=== PATIENT | female | born 1970 | race Caucasian/White ===

== ENCOUNTER 2018-10-22 10:16 | Emergency (ER) | payer MEDICAID, OTHER ==
--- NOTE | 2018-10-22 10:31 | EDPHY ---
HPI/HX/ROS/PE/MDM Narrative: CHIEF COMPLAINT: R leg swelling HPI: This patient is a 48 year old female with history of diabetes, hypertension, hyperlipidemia. She complains of bilateral ankle swelling ongoing for the past week, which is unusual for her. This morning, she woke with right leg swelling and presented to urgent care for evaluation. She was then referred here to the ED to rule out DVT or other acute processes. She denies ever having calf swelling in the past. Denies any recent prolonged travel. No chest pain or shortness of breath. She denies any known heart problems. No fever or other recent illness or trauma. REVIEW OF SYSTEMS: A comprehensive 10 system review of systems is otherwise negative aside from elements mentioned in the history of present illness and medical decision making. PMH: Diabetes, hypertension, hyperlipidemia. SOCIAL HISTORY: Single, lives in [place], self-employed. PHYSICAL EXAM: General:Patient is alert, in no acute distress. ENT:Eyes are normal to inspection. ENT inspection normal. Neck: Normal inspection. Full range of motion. Respiratory:No respiratory distress. Breath sounds normal bilaterally. Cardiovascular: Regular rate and rhythm. Strong peripheral pulses. Normal cap refill. Abdomen:The abdomen is nontender to palpation. There are no peritoneal signs. There are normal bowel sounds. Back: Normal to inspection. No tenderness to palpation. Skin: Normal color. No rash. Warm and dry. Extremities: Bilateral ankle swelling. Right calf swelling. Full range of motion. Neuro: Oriented x3. Normal motor function. Normal sensory function. ED Course: 48 y/o female presents with right calf swelling and bilateral ankle swelling. She otherwise feels well. Plan for chest x-ray, labs including CBC, chemistries , BNP, d-dimer, LFTs. Plan for US RLE to rule out DVT. CXR is negative for acute processes. Laboratory studies are completely unremarkable. 12:[address] Martin, radiologist. US is negative for DVT. Reassessed patient. Discussed imaging results. Plan to discharge home in good condition. She will follow up with her PCP for further evaluation and discussion of her medication regimen. Follow up and return precautions discussed. She is comfortable with this plan. MDM: This patient presents with bilateral lower extremity edema with some asymmetric discomfort on the right. We performed an extensive workup including LFTs, BNP, chest x-ray, troponin, basic metabolic profile, all of which are normal. The etiology of her edema is unclear, but I see no sign of emergent causes such as renal failure, congestive heart failure, electrolyte disturbance the a. Ultrasound is negative for DVT. I think the patient is safe for further outpatient workup and management. I have a consult case management to assist her with establishing a primary care provider. - Data Points Imaging Results: Imaging Impressions Chest X-Ray 10/22/18 10:35 Impression: Normal chest. Extremity Venous Study 10/22/18 11:25 Impression: No evidence of deep vein thrombosis, with limited visualization of the posterior tibial veins. Findings discussed with Jair Casper MD 10/22/2018 at 12:18. Imaging: I viewed and interpreted images myself Laboratory Results: Laboratory Results 10/22/18 10:35 10/22/18 10:35 10/22/18 10/22/18 10/22/18 10:35 10:35 10:35 WBC 6.60 10^3/uL 10^3/uL (3.80-9.50) RBC 4.69 10^6/uL 10^6/uL (4.18-5.33) Hgb 14.8 g/dL g/dL (12.6-16.3) Hct 44.9 % % (38.0-47.0) MCV 95.7 fL fL (81.5-99.8) MCH 31.6 pg pg (27.9-34.1) MCHC 33.0 g/dL g/dL (32.4-36.7) RDW 13.2 % % (11.5-15.2) Plt Count 171 10^3/uL 10^3/uL (150-400) MPV 11.0 fL fL (8.7-11.7) Neut % (Auto) 68.0 % % (39.3-74.2) Lymph % (Auto) 21.5 % % (15.0-45.0) Howard % (Auto) 6.7 % % (4.5-13.0) Eos % (Auto) 3.2 % % (0.6-7.6) Baso % (Auto) 0.3 % % (0.3-1.7) Nucleat RBC Rel Count 0.0 % % (0.0-0.2) Absolute Neuts (auto) 4.49 10^3/uL 10^3/uL (1.70-6.50) Absolute Lymphs (auto) 1.42 10^3/uL 10^3/uL (1.00-3.00) Absolute Monos (auto) 0.44 10^3/uL 10^3/uL (0.30-0.80) Absolute Eos (auto) 0.21 10^3/uL 10^3/uL (0.03-0.40) Absolute Basos (auto) 0.02 10^3/uL 10^3/uL (0.02-0.10) Absolute Nucleated RBC 0.00 10^3/uL 10^3/uL (0-0.01) Immature Gran % 0.3 % % (0.0-1.1) Immature Gran # 0.02 10^3/uL 10^3/uL (0.00-0.10) D-Dimer 0.36 ug/mLFEU ug/mLFEU (0.00-0.50) Sodium 139 mEq/L mEq/L (135-145) Potassium 4.3 mEq/L mEq/L (3.5-5.2) Chloride 103 mEq/L mEq/L (97-110) Carbon Dioxide 27 mEq/l mEq/l (22-31) Anion Gap 9 mEq/L mEq/L (6-14) BUN 14 mg/dL mg/dL (7-23) Creatinine 0.9 mg/dL mg/dL (0.6-1.0) Estimated GFR > 60 Glucose 101 mg/dL H mg/dL (70-100) Calcium 9.1 mg/dL mg/dL (8.5-10.4) Total Bilirubin 0.4 mg/dL mg/dL (0.1-1.4) Conjugated Bilirubin 0.4 mg/dL mg/dL (0.0-0.5) Unconjugated Bilirubin 0.0 mg/dL mg/dL (0.0-1.1) AST 33 IU/L IU/L (14-46) ALT 41 IU/L IU/L (9-52) Alkaline Phosphatase 47 IU/L IU/L (38-126) NT-Pro-B Natriuret Pep 25 pg/mL pg/mL (0-125) Total Protein 6.6 g/dL g/dL (6.3-8.2) Albumin 3.7 g/dL g/dL (3.5-5.0) General Time Seen by Provider: 10/22/18 10:21 Initial Vital Signs: Initial Vital Signs Temperature (C) 37.2 C 10/22/18 10:24 Heart Rate 104 H 10/22/18 10:24 Respiratory Rate 18 10/22/18 10:24 Blood Pressure 158/117 H 10/22/18 10:24 O2 Sat (%) 96 10/22/18 10:24 O2 Delivery Mode Room Air Allergies/Adverse Reactions: Penicillins Allergy (Intermediate, Verified 10/22/18 10:19) Home Medications: Medication Instructions Recorded CLONAZEPAM 11/15/09 Nortrel 11/15/09 Atorvastatin Calcium 10/22/18 CLONAZEPAM 10/22/18 FLUoxetine 10/22/18 Humulin 70-30 Vial 10/22/18 Janumet 50-1,000 mg Tablet 10/22/18 Losartan Potassium 10/22/18 buPROPion 10/22/18 busPIRone 10/22/18 traZODone 10/22/18 Departure - Departure Disposition: Home, Routine, Self-Care Clinical Impression: Bilateral lower extremity edema Condition: Good Instructions: Leg Edema (ED) Additional Instructions: Follow up with your primary care provider in 2-3 days for further evaluation. Return to the Emergency Department for fever, chest pain, shortness of breath, increasing pain or other worsening of condition. Referrals: Constantino Payan MD [Medical Doctor] - As per Instructions Report Scribed for: Jair Casper Report Scribed by: Soila Macias Date of Report: 10/22/18 Time of Report: 10:30 Physician Review and Approval Statement: Portions of this note were transcribed by an ED scribe. I personally performed the history, physical exam, and medical decision making; and confirm the accuracy of the information in the transcribed note.
[2018-10-22 10:46] LABS: PLATELET COUNT 171 10^3/uL (150-400)
[2018-10-22 13:10] VITALS: BP 115/73
--- NOTE | 2018-10-22 14:27 | ASMTCMCOM ---
CM Note CM Note Notes: CM assisted patiet with scheduling follow up appointment with [facility]. Appointment scheduled for October 28 at 0930. ED report faxed to the clinic with confirmation. Patient states that she had a PCP with [facility] and her last appointment was in June,. Unfortunately, [facility] is "no longer taking her Medicaid". Patient has contact number and address for [facility] and has been there with her sister. CM available for further needs, prn Date Signed: 10/22/2018 02:27 PM Electronically Signed By:Kim Claros RN
== END 2018-10-22 13:12 | disposition home or self-care (01) ==
DX: R22.43 Localized swelling, mass and lump, lower limb, bilateral (principal); E11.9 Type 2 diabetes mellitus without complications; I10 Essential (primary) hypertension; E78.5 Hyperlipidemia, unspecified; Z88.0 Allergy status to penicillin